=== PATIENT | female | born 1990 | race Hispanic/Latino ===

== ENCOUNTER 2022-09-22 09:46 | Emergency (ER) | payer MEDICAID, OTHER ==
[~2022-09-22] VITALS: Ht 152.4 cm; Wt 83.0 kg
[2022-09-22] MEDS ORDERED: KETOROLAC 60 MG VIAL (30MG/ML) IM ONE (12:00)
[2022-09-22] MEDS ORDERED: METH4TAB3 PO (12:51)
[2022-09-22] MEDS ORDERED: AMOX1TAB16 PO (12:51)
[2022-09-22] MEDS ORDERED: ACET-2079 PO (12:51)
[2022-09-22 13:00] VITALS: BP 132/78
== END 2022-09-22 13:03 | disposition home or self-care (01) ==
LOC: EDH 09:46
DX: K11.20 Sialoadenitis, unspecified (principal); F12.90 Cannabis use, unspecified, uncomplicated; Z79.1 Long term (current) use of non-steroidal anti-inflammatories (NSAID)
CPT/HCPCS: 99284; 76536; 96372; J1885

== ENCOUNTER 2022-09-27 15:31 | Emergency (ER) | payer OTHER ==
[~2022-09-27] VITALS: Ht 152.4 cm; Wt 82.6 kg
[~2022-09-27 15:31] MED LIST: ACET-2079 PO; AMOX1TAB16 PO; METH4TAB3 PO
[2022-09-27 15:33] VITALS: BP 126/63
[2022-09-27] MEDS ORDERED: CLIN-141 PO (16:06)
== END 2022-09-27 16:24 | disposition home or self-care (01) ==
LOC: EDH 15:31
DX: K11.20 Sialoadenitis, unspecified (principal); Z79.899 Other long term (current) drug therapy; Z98.890 Other specified postprocedural states